=== PATIENT | male | born 1990 | race Caucasian/White ===

== ENCOUNTER 2017-12-14 10:40 | Emergency (ER) | payer BC, SELFPAY ==
[2017-12-14 10:42] VITALS: BP 120/67; PULSE 67; RESP 17; TEMP 37.2; O2SAT 96; BMI 39.7
--- NOTE | 2017-12-14 11:17 | ED.VISSUMM ---
- ER Visit Summary Date of Service: 12/14/17 Chief Complaint: Epigastric pain History of Present Illness: The patient is a 27 M no significant past medical or surgical history. States this past weekend after eating sushi he had epigastric abdominal pain. Has been intermittent, ago. No associated nausea. No vomiting. No diarrhea. No melena. No weight change. No dysuria. Physical Examination: Young male. Vital signs are stable afebrile. No acute distress. HEENT exam unremarkable. Neck nontender no lymphadenopathy. Lungs clear to auscultation bilaterally. Heart regular rate and rhythm no murmur. Abdomen soft. Nondistended nontender. Normal bowel sounds no peritoneal signs. The right upper quadrant is nontender. No Ruby sign. Right lower quadrant nontender no McBurney's point tenderness. No hernias no masses. No signs of obstruction. He is moving all 4 extremities. Neurovascular intact. Without edema. Back exam normal nontender neurologic exam normal. Test Results: Patient had labs and a ultrasound done at [facility] last several days were trying to get those results. According to him they are all negative. Emergency Department Course and Treatment: Treated here with GI cocktail and Protonix p.o. Treatment Plan: [] Disposition: Discharge Impression: Acute abdominal pain secondary to gastritis This note was generated with [employer] dictation software. It may contain incorrect words, spelling, and punctuation that were not noted in review of the chart prior to signing ED Disposition - Plan for ED Patient: Chief Complaint: Abd Pain Referrals: Care Physician,No Primary [Primary Care Provider] -
--- NOTE | 2017-12-14 11:21 | ED.DCSUM_ITS ---
- ER Visit Summary Date of Service: 12/14/17 Chief Complaint: Epigastric pain History of Present Illness: The patient is a 27 M no significant past medical or surgical history. States this past weekend after eating sushi he had epigastric abdominal pain. Has been intermittent, ago. No associated nausea. No vomiting. No diarrhea. No melena. No weight change. No dysuria. Physical Examination: Young male. Vital signs are stable afebrile. No acute distress. HEENT exam unremarkable. Neck nontender no lymphadenopathy. Lungs clear to auscultation bilaterally. Heart regular rate and rhythm no murmur. Abdomen soft. Nondistended nontender. Normal bowel sounds no peritoneal signs. The right upper quadrant is nontender. No Ruby sign. Right lower quadrant nontender no McBurney's point tenderness. No hernias no masses. No signs of obstruction. He is moving all 4 extremities. Neurovascular intact. Without edema. Back exam normal nontender neurologic exam normal. Test Results: Patient had labs and a ultrasound done at [facility] last several days were trying to get those results. According to him they are all negative. Emergency Department Course and Treatment: Treated here with GI cocktail and Protonix p.o. Treatment Plan: [] Disposition: Discharge Impression: Acute abdominal pain secondary to gastritis This note was generated with [employer] dictation software. It may contain incorrect words, spelling, and punctuation that were not noted in review of the chart prior to signing ED Disposition - Plan for ED Patient: Chief Complaint: Abd Pain Referrals: Care Physician,No Primary [Primary Care Provider] -
--- NOTE | 2017-12-14 11:21 | ED.DEP ---
ED Disposition - Plan for ED Patient: Disposition: Home or Assisted Living Chief Complaint: Abd Pain Instructions: ED Gastritis Prescriptions: Omeprazole [Prilosec] 20 mg PO BID #30 cap Referrals: Lori Cobos MD [STAFF PHYSICIAN] - 1 Week if not improving Additional Instructions: And diet and increase slowly as tolerated. Next Prilosec twice a day for at least a week and then once a day. Follow-up with Dr. Cobos if not improving. Return to the ER if feeling worse.
[2017-12-14] MEDS: Pantoprazole Sodium 40 MG Tablet PO (11:40)
[2017-12-14 12:01] VITALS: BP 144/79; PULSE 61; RESP 16; O2SAT 96
== END 2017-12-14 12:02 | disposition home or self-care (01) ==
PROVIDERS: Emergency Provider Emergency Medicine
DX: K29.70 Gastritis, unspecified, without bleeding (principal)
CPT/HCPCS: 99283